=== PATIENT | male | born 1945 ===

== ENCOUNTER 2020-09-24 07:38 | Outpatient (CLI) | payer OTHER ==
[~2020-09-24 07:38] MED LIST: ALFUZOSIN HCL10 MG; ASA81 MG; CARTIA XT240 MG; GLIMEPIRIDE4 MG; LISINOPRIL40 MG; METFORMIN HCL1000 MG; MOTRIN800 MG PO; TOPROL XL100 M1; TUSSIONEX PENNKI5 ML PO; ZOCOR20 MG
== END 2020-09-24 08:59 | disposition home or self-care (01) ==
LOC: SONOGRAMA 07:38
PROVIDERS: ATTEND General Practice
DX: K80.80 Other cholelithiasis without obstruction (principal); R19.00 Intra-abdominal and pelvic swelling, mass and lump, unspecified site

== ENCOUNTER 2021-06-09 14:27 | Emergency (ER) | payer OTHER ==
[~2021-06-09] VITALS: Ht 165.1 cm; Wt 99.8 kg
[2021-06-09] MEDS ORDERED: BUMETANIDE0.5 MG (14:40)
[2021-06-09] MEDS ORDERED: ATACAND16 MG (14:40)
[2021-06-09] MEDS ORDERED: BIDIL TABLET1 EACH (14:41)
[2021-06-09] MEDS ORDERED: CARVEDILOL ER40 MG (14:41)
[2021-06-09] MEDS ORDERED: ALDACTONE25 MG (14:42)
[2021-06-09] MEDS ORDERED: MONTELUKAST SODI4 M1 (14:42)
[2021-06-09] MEDS ORDERED: JANUVIA100 MG (14:43)
[2021-06-09] MEDS ORDERED: JARDIANCE25 MG (14:43)
[2021-06-09] MEDS ORDERED: SYMBICORT 16010.2 GM (14:44)
[2021-06-09] MEDS ORDERED: LANTUS SOL100 UNIT/1 (14:44)
[2021-06-09] MEDS ORDERED: PROAIR HFA8.5 GM (14:44)
== END 2021-06-09 16:35 | disposition home or self-care (01) ==
LOC: ER 14:27
DX: T16.1XXA Foreign body in right ear, initial encounter (principal); W45.8XXA Other foreign body or object entering through skin, initial encounter; Y93.89 Activity, other specified; Y92.89 Other specified places as the place of occurrence of the external cause; Y99.8 Other external cause status

== ENCOUNTER 2023-12-07 14:24 | Outpatient (CLI) | payer OTHER ==
[~2023-12-07 14:24] MED LIST changes: +ALDACTONE25 MG; +ATACAND16 MG; +BIDIL TABLET1 EACH; +BUMETANIDE0.5 MG; +CARVEDILOL ER40 MG; +JANUVIA100 MG; +JARDIANCE25 MG; +LANTUS SOL100 UNIT/1; +MONTELUKAST SODI4 M1; +PROAIR HFA8.5 GM; +SYMBICORT 16010.2 GM
== END 2023-12-07 14:28 | disposition home or self-care (01) ==
LOC: RAD 14:24
PROVIDERS: ATTEND Internal Medicine Cardiovascular Disease
DX: I42.0 Dilated cardiomyopathy (principal)

== ENCOUNTER → 2025-03-21 | Day surgery (SDC) | payer OTHER ==
[2025-03-12 08:11] LABS: URINE APPEARANCE Clear; URINE BILIRRUBIN Negative (NEGATIVE); URINE BLOOD Negative; URINE COLOR Yellow; URINE KETONE Negative (NEGATIVE); URINE LEUKOCYTE Negative; URINE NITRATE Negative; URINE PROTEIN Negative (NEGATIVE); URINE UROBILINOGEN 0.2 E.U./dl
[2025-03-12 08:25] VITALS: BP 136/81
[2025-03-12 08:32] LABS: BASO % 0.3 % (0.1-1.2); EOS # 0.11 (0.04-0.54); EOS % 1.5 % (0.7-7.0); HEMOGLOBIN 14.6 g/dL (13.7-17.5); LYMPH # 2.08 (1.18-3.74); LYMPH % 27.5 % (19.3-53.1); MEAN CORPUSCULAR HEMOGLOBIN 28.6 pg (25.6-32.2); MONO # 0.64 (0.24-0.82); MONO % 8.5 % (4.7-12.5); NEUT # 4.69 (1.56-6.13); NEUT % 61.8 % (34.0-71.1); PLATELET COUNT 172 K/uL (163-369); RED BLOOD COUNT 5.11 M/uL (4.63-6.08); RED CELL DISTRIBUTION WIDTH 13.5 % (11.6-14.4)
[2025-03-12 08:41] LABS: URINE BACTERIA 2.4 uL (0.0-1933); URINE EPITHELIAL CELLS 0.1 uL (0.0-38.8); URINE GLUCOSE >=1000 MG/DL (NEGATIVE); URINE RBC 1.6 uL (0.0-20.8); URINE WBC 0.4 uL (0.0-23.2)
[2025-03-12 09:02] LABS: INR 1.1; PARTIAL THROMBOPLASTIN TIME 28.2 SECONDS (22.0-34.0); PROTHROMBIN TIME 11.9 SECONDS (9.0-11.5)
[2025-03-12 09:36] LABS: ALBUMIN 3.8 gm/dL (3.4-5.0); BILIRUBIN TOTAL 0.67 mg/dL (0.3-1.2); CALCIUM 9.4 mg/dL (8.5-10.1); CREATININE SERUM 1.06 mg/dL (0.70-1.30); GFR 67.05; GLOBULINA 3.4 G/DL (2.4-3.5); POTASSIUM 4.2 mEq/L (3.5-5.1); TOTAL PROTEIN 7.2 gm/dL (6.4-8.2)
[~2025-03-21] VITALS: Ht 165.1 cm; Wt 88.5 kg
[~2025-03-21] MED LIST changes: +CEFTRIAXONE SODIUM 2,000 MG VIAL IV ONE; +DIBUCAINE 30 GM TUBE ONE; +DIBUCAINE 30 GM TUBE RECTAL ONE; +HEMOSTATIC MATRIX 1 KIT KIT TOP ONE; -LANTUS SOL100 UNIT/1; +LANTUS SOL100 UNIT/1 SUBCUTANEO; +METRONIDAZOLE/SODIUM CHLORIDE 500 MG/100 ML PIGGYBACK IV ONE; +NEURONTIN300 MG PO; +POVIDONE-IODINE 118 ML BOTT TOP ONE; +TYLENOL ARTHRI650 MG PO; +XARELTO20 M1 PO
== END | disposition home or self-care (01) ==
LOC: ADM 03-13 09:45 → CIR.AMB 05:45
PROVIDERS: ATTEND Surgery
DX: C21.8 Malignant neoplasm of overlapping sites of rectum, anus and anal canal (principal); K62.89 Other specified diseases of anus and rectum

== ENCOUNTER 2025-05-13 05:21 | Day surgery (SDC) | payer OTHER ==
[2025-05-08 08:22] VITALS: BP 145/78
[2025-05-08 08:50] LABS: URINE APPEARANCE Clear; URINE BILIRRUBIN Negative (NEGATIVE); URINE BLOOD Negative; URINE COLOR Yellow; URINE KETONE Negative (NEGATIVE); URINE LEUKOCYTE Negative; URINE NITRATE Negative; URINE PROTEIN Negative (NEGATIVE); URINE UROBILINOGEN 0.2 E.U./dl
[2025-05-08 08:54] LABS: URINE BACTERIA 328.5 uL (0.0-1933); URINE WBC 1.8 uL (0.0-23.2)
[2025-05-08 09:02] LABS: URINE CAST 0.00 uL (0.0-1.40); URINE EPITHELIAL CELLS 0.6 uL (0.0-38.8); URINE GLUCOSE >=1000 MG/DL (NEGATIVE); URINE RBC 0.8 uL (0.0-20.8)
[2025-05-08 09:39] LABS: INR 1.09
[~2025-05-13 05:21] MED LIST changes: -CEFTRIAXONE SODIUM 2,000 MG VIAL IV ONE; -DIBUCAINE 30 GM TUBE ONE; -DIBUCAINE 30 GM TUBE RECTAL ONE; +FARXIGA10 MG PO; -HEMOSTATIC MATRIX 1 KIT KIT TOP ONE; -METRONIDAZOLE/SODIUM CHLORIDE 500 MG/100 ML PIGGYBACK IV ONE; -POVIDONE-IODINE 118 ML BOTT TOP ONE
[2025-05-13] MEDS ORDERED: CEFAZOLIN SODIUM 1,000 MG VIAL IV ONE (11:15)
[2025-05-13] MEDS ORDERED: LIDOCAINE HCL 1%/EPINEPHRINE 20ML VIAL IJ ONE (11:30)
[2025-05-13] MEDS ORDERED: IOVERSOL 320 MG/ML - 50 ML VIAL IV ONE (11:30)
[2025-05-13] MEDS ORDERED: HEPARIN SODIUM,PORCINE 500 UNITS/5 ML VIAL IV ONE (11:30)
== END 2025-05-13 16:05 | disposition home or self-care (01) ==
LOC: CIR.AMB 05:21
PROVIDERS: ATTEND Radiology Diagnostic Radiology
DX: C21.0 Malignant neoplasm of anus, unspecified (principal); Z45.2 Encounter for adjustment and management of vascular access device
CPT/HCPCS: 36561; C1751